=== PATIENT | male | born 1955 | race Caucasian/White ===

== ENCOUNTER 2025-05-20 09:42 | Emergency (ER) | payer OTHER, SELFPAY ==
[2025-05-20 09:52] VITALS: BP 142/80
[2025-05-20 12:12] VITALS: BMI 24.5
[2025-05-20 12:20] VITALS: BP 137/80
[2025-05-20 12:31] LABS: Hematocrit 35.1 % (39.0-52.0); Hemoglobin 11.7 g/dL (13.0-18.0); Mean Corp Hgb Conc. 33.3 g/dL (33.0-37.0); Mean Corpuscular Volume 88.0 fL (80.0-94.0); Nucleated Red Blood Cells % 0 % (-); Platelet Count 531 10^3/uL (130-400); Red Cell Dist. Width 12.1 % (11.5-14.5)
[2025-05-20 12:51] LABS: ALT (SGPT) 32 U/L (0-50); AST (SGOT) 22 U/L (17-59); Albumin 3.6 g/dl (3.5-5.0); Alkaline Phosphatase 96 U/L (38-126); Blood Urea Nitrogen 27 mg/dl (9-20); Calcium 9.8 mg/dl (8.4-10.2); Carbon Dioxide 26 mmol/L (22-30); Chloride 104 mmol/L (98-107); Estimated Creatinine Clearance 52 ml/min; Glucose 113 mg/dl (70-99); Lipase 226 U/L (23-300); Potassium 4.5 mmol/L (3.5-5.1); Sodium 138 mmol/L (135-145); Total Protein 7.1 g/dl (6.3-8.2); eGFR 53.74
--- NOTE | 2025-05-20 12:51 | ED.GENMED ---
History of Present Illness
General
Chief Complaint: Abnormal Lab Value
Source: patient and spouse
Exam Limitations: none
Time Seen by Provider: 05/20/25 11:27
Nursing documentation reviewed up to this point in time: agreed with
History of Present Illness
History of Present Illness:
Patient is a healthy 69-year-old male who presents to the emergency department from primary care office for evaluation of abnormal EKG. Patient states that he had an appoint with his primary care provider this morning as he has been feeling 'unwell'
for a few weeks now. He apparently has had a dry cough past few weeks/month. Him and his initially did not think much of it however they were at a friend's house over the weekend who noticed frequent cough and suggested he be seen by his
primary care provider. In addition to the cough, patient also states he has been having intermittent nausea over the past month. He has been experiencing weight loss as well which he attributes to his recent discontinuation of alcohol.
Patient denies any recent fevers or productive cough. He denies any chest pain, shortness of breath, or fatigue. He has not noticed any significant weakness. His appetite has been normal and he is having normal bowel movements and urinating
without difficulty.
Patient was at his primary care provider they performed an EKG which apparently showed some 'abnormality' and he was referred to the emergency department for evaluation.
Patient's PCP did order outpatient lab work and chest x-ray.
Review of Systems
Review of Systems
Allergies reviewed?: Yes
All Other Systems: ROS reviewed and negative except as documented in HPI and ROS
Phy Exam
Physical Exam
Physical Exam:
Vitals: Mildly tachycardic, hypertensive. Afebrile
General: Patient is well appearing, no acute distress
Skin: Warm and dry, no rashes or lesions
Head: Normocephalic, atraumatic
Eyes: Sclera nonicteric.
Throat: Protecting airway
Neck: Normal ROM, no cervical spine tenderness, no meningismus
Cardiac: Tachycardic, normal rhythm, no murmurs.
Pulm: Normal respiratory effort, no wheezes, rales, rhonchi heard on exam
Abdomen: Abdomen soft and nontender.
Extremities: No evidence of cyanosis or edema. 2+ palpable DP pulses bilaterally
Neuro: AAOx3. Grossly intact.
Psychiatric: Normal affect.
Course
Orders/Labs/Results
Orders:
Orders
05/20/25 09:54
EKG [Electrocardiogram (*1)] Urgent
Reason for Study: Tachycardia
EKG- Treatment ONCE
05/20/25 11:55
CR Chest - 2 Views Urgent
Comment:
Reason For Exam: cough
05/20/25 12:19
Complete Blood Count/With Diff Urgent
Comprehensive Metabolic Panel Urgent
Lipase Urgent
05/20/25 15:03
Amoxicillin 875 mg/Clav 125 mg [Augmentin 875 mg/125 mg] 1 tablet PO NOW STA
Azithromycin [Zithromax] 500 mg PO NOW STA
Abnormal Lab Results
05/20/25
12:19
WBC 11.0 H 10^3/uL
(4.8-10.8)
RBC 3.99 L 10^6/uL
(4.70-6.10)
Hgb 11.7 L g/dL
(13.0-18.0)
Hct 35.1 L %
(39.0-52.0)
Plt Count 531 H 10^3/uL
(130-400)
Abs Immat Gran (auto) 0.1 H 10^3/uL
(0-0.05)
Absolute Neuts (auto) 8.2 H 10^3/uL
(1.4-6.5)
Absolute Monos (auto) 1.1 H 10^3/uL
(0.1-0.6)
Immature Gran % 1.0 H %
(0-0.5)
Lymphocytes % 11.8 L %
(20.5-51.1)
Monocytes % 10.2 H %
(1.7-9.3)
BUN 27 H mg/dl
(9-20)
Creatinine 1.4 H mg/dL
(0.7-1.3)
Glucose 113 H mg/dl
(70-99)
05/20/25 12:19
05/20/25 12:19
Vital Signs
Initial and Last Documented VS:
Initial Vital Signs
Temp Pulse Resp BP Pulse Ox
97.7 F 110 18 142/80 98
05/20/25 09:52 05/20/25 09:52 05/20/25 09:52 05/20/25 09:52 05/20/25 09:52
Last Documented Vital Signs
Temp Pulse Resp BP Pulse Ox
97.7 F 109 16 164/86 100
05/20/25 09:52 05/20/25 14:13 05/20/25 14:13 05/20/25 14:13 05/20/25 14:13
MDM/Problems Addressed
Differential Diagnosis Includes:
Not limited to: Viral illness, bronchitis, pneumonia, anemia, electrolyte abnormality, malignancy, etc.
MDM/Problems Addressed:
69 year-old male presenting from PCP after supposed abnormal EKG after office visit this AM for persistent cough and feeling �unwell' for the past month. No associated fever, chest pain, shortness of breath, fatigue, lightheadedness. Vital signs and
physical exam as above.
EKG reviewed by myself as well as attending physician without any concerning ischemic changes or arrythmia. He is mildly tachycardic however primary care provider did let us know that this is chronic.
Do not suspect acute coronary syndrome or emergent cardiac pathology today. However � given patients persistent cough and intermittent nausea � will obtain basic labs and check chest x-ray here in ED.
Update: labs reviewed. Mild anemia noted as well as mild renal insufficiency on chemistry. Patient unsure of prior lab values and we have nothing for comparison. This may be chronic and do not feel related to patients presenting symptoms today.
Chest x-ray with subtle opacity in right upper lobe and with history of persistent cough � concern for possible pneumonia. Will start antibiotics. He is afebrile and very well appearing in no distress � feel appropriate for outpatient management.
However � given somewhat atypical appearance - did express importance of repeat chest x-ray with PCP following antibiotics to ensure opacity resolves to rule out underlying malignancy/nodule.
Advise that he review his lab work with primary care next week at scheduled appointment as well to ensure no acute changes. Discussed importance of staying well hydrated and very strict return precautions. Patient and patient�s family comfortable
with plan.
Chronic conditions affecting care:
Chronic tachycardia
Acute Exacerbation and/or Progression of Chronic Illness:
N/A
*Radiology
Radiology exam reviewed: preliminary read by ED provider (Chest x-ray my me-subtle opacity in right upper lobe) and radiology read reviewed
*Pulse Oximetry
SaO2: 99
Oxygen Mode of Delivery: Room air
Patient hypoxic: no
*EKG
Interpreted by ED Provider?: Yes
EKG Intrepretation Date: 05/20/25
Interpretation: abnormal
Comparison EKG: no comparison EKG present
Heart Rate: 107
Rate: tachycardiac
Rhythm: sinus
Anthony: normal axis
Interval: normal QT interval
QRS Pattern: normal QRS
Ischemia: no ischemia
*Refrigeration Mechanic Interpretation
Rate: Refrigeration Mechanic- N/A
*Critical Care Note
Total Time (30-74mins, 75-104mins- exclusive of procedures): Not Applicable
ED Attending Note
-
Portions of this chart may have been created with voice recognition software.� Occasional wrong word or��sound alike� substitutions may have occurred due to the inherent limitations of voice recognition software.
Discharge Plan
Departure
Patient Disposition: Home (Routine Discharge)
Date of Disposition: 05/20/25
Time of Disposition: 15:07
Patient with high blood pressure during this ER visit?: Yes
Condition: Good
Discharge Problem:
Cough, Mild renal insufficiency, Chronic tachycardia
Instructions: Pneumonia in adults (DC), Dehydration in adults - ED (DC), BLOOD PRESSURE
Prescriptions:
New
amoxicillin-pot clavulanate 875-125 mg tablet
1 tab PO BID 5 Days Qty: 10 0RF
azithromycin 250 mg tablet
250 mg PO DAILY 4 Days Qty: 4 0RF
Referrals:
[facility], [Other]
Cayden Espitia PA-C [Family Provider, Family Practice] - Follow up in 5-7 days
Activity Restrictions/Additional Instructions:
RETURN TO THE EMERGENCY DEPARTMENT WITH ANY FEVERS, CHEST PAIN OR SHORTNESS OF BREATH, PERSISTENT COUGH OR DIFFICULTY BREATHING, BLACK/BLOODY STOOLS, FATIGUE, SIGNS OF SEVERE DEHYDRATION, OR ANY OTHER CONCERNS
- As discussed�your chest x-ray showed findings of possible pneumonitis/pneumonia. A prescription for 2 antibiotics have not sent to your pharmacy which you should take as directed. You should have a repeat chest x-ray after you complete
antibiotics to ensure resolves�this may require further imaging if abnormalities persist following antibiotic therapy.
- As discussed�your lab work showed mild anemia with a hemoglobin of 11.7. You were also found to have mild elevated kidney function with creatinine of 1.4. Please ensure that you follow-up with your primary care as scheduled next week for
comparison of prior lab work and repeat labs as needed.
- It is important to stay well-hydrated.
- Follow-up with primary care/cardiology
Monitor your symptoms closely and return to the emergency department with any acute worsening/ new symptoms or any other concerns.
Interventions
Interventions:
*Risk Screen - Suicide Last Done: 05/20/25 09:49
*General Assessment Last Done: 05/20/25 09:49
*Neglect/Abuse Screening Last Done: 05/20/25 09:49
*ED- Fall Risk Assessment Last Done: 05/20/25 09:49
*ED COVID-19 Vaccine History Last Done: 05/20/25 09:49
*Nursing Disposition Last Done: 05/20/25 15:20
Discharge Date and Time
Discharge Date/Time: 05/20/25 15:20
Print Language: [id number]
[2025-05-20 14:13] VITALS: BP 164/86
[2025-05-20] MEDS: AUGMENTIN 875 MG/125 MG 1 TABLET PO (15:16)
[2025-05-20] MEDS: ZITHROMAX 500 MG PO (15:16)
== END 2025-05-20 15:20 | disposition home or self-care (01) ==
LOC: EMR 09:42
PROVIDERS: Physician Assistant; EMERGENCY PHYSICIAN Emergency Medicine; FAMILY PHYSICIAN Physician Assistant Medical
DX: R05.9 Cough, unspecified (principal); N18.9 Chronic kidney disease, unspecified; R00.0 Tachycardia, unspecified; D64.9 Anemia, unspecified
CPT/HCPCS: 99283; 71046; 80053; 83690; 85025; 93005

== ENCOUNTER → 2025-07-04 11:06 | Outpatient (REF) | payer OTHER, SELFPAY | LOC: HWRAD 11:06 | PROVIDERS: ATTENDING PHYSICIAN Physician Assistant Medical | DX: R00.0 Tachycardia, unspecified (principal); J18.9 Pneumonia, unspecified organism | CPT/HCPCS: 71046 ==

== ENCOUNTER → 2025-08-12 12:33 | Outpatient (REF) | payer OTHER, SELFPAY | LOC: RAD 12:33 | PROVIDERS: ATTENDING PHYSICIAN Physician Assistant Medical | DX: J18.9 Pneumonia, unspecified organism (principal); Z12.5 Encounter for screening for malignant neoplasm of prostate | CPT/HCPCS: 71046 ==